=== PATIENT | female | born 1950 | race African-American/Black ===

== ENCOUNTER 2019-03-07 15:18 | Emergency (ER) | payer MEDICARE ==
--- NOTE | 2019-03-07 15:41 | Event Note ---
ED Screening Note Date of service: 03/07/19 Time: 15:34 ED Screening Note: This is a 68 y.o. F. that presents with hematemesis and weakness on awaking today. Patient sent to ER from Dr. Ankit Leslie office for elevated blood pressure and dizziness. Denies chest pain and shortness of breath. This initial assessment/diagnostic orders/clinical plan/treatment(s) is/are subject to change based on patients health status, clinical progression and re- assessment by fellow clinical providers in the ED. Further treatment and workup at subsequent clinical providers discretion. Patient/guardian urged not to elope from the ED as their condition may be serious if not clinically assessed and managed. Initial orders include: Labs Main ED for further evaluation POC glucose 111
[2019-03-07 16:39] LABS: Basophils % (Auto) 0.5 % (0.0-1.8); Eosinophils % (Auto) 0.1 % (0.0-4.3); Hematocrit 38.9 % (30.3-42.9); Hemoglobin 13.4 gm/dl (10.1-14.3); Lymphocytes # (Auto) 1.2 K/mm3 (1.2-5.4); Lymphocytes % (Auto) 18.6 % (13.4-35.0); Mean Corpuscular HGB Conc 35 % (30-34); Mean Corpuscular Volume 89 fl (79-97); Monocytes # (Auto) 0.2 K/mm3 (0.0-0.8); Monocytes % (Auto) 3.5 % (0.0-7.3); Platelet Count 208 K/mm3 (140-440); Red Blood Count 4.35 M/mm3 (3.65-5.03)
[2019-03-07 17:02] LABS: Alanine Aminotransferase 14 units/L (7-56); Albumin 4.2 g/dL (3.9-5); BUN/Creatinine Ratio 22; Blood Urea Nitrogen 11 mg/dL (7-17); Calcium 9.4 mg/dL (8.4-10.2); Hemolysis Index 6
[2019-03-07 17:31] LABS: Bacteria,Urine 1+ /HPF (Negative); Bilirubin,Urine NEG (Negative); Blood,Urine NEG (Negative); Color,Urine Colorless (Yellow); Protein,Urine <15 mg/dL mg/dL (Negative); Urobilinogen,Urine < 2.0 mg/dL (<2.0)
[2019-03-07 17:39] LABS: WBC,Urine < 1.0 /HPF (0.0-6.0)
--- NOTE | 2019-03-07 18:03 | Cat Scan Report ---
CT HEAD WITHOUT CONTRAST INDICATION / CLINICAL INFORMATION: dizziness. TECHNIQUE: All CT scans at this location are performed using CT dose reduction for ALARA by means of automated e xposure control. COMPARISON: None available. FINDINGS: HEMORRHAGE: No evidence of intracranial hemorrhage or extra-axial fluid collection. EXTRA-AXIAL SPACES: Cortical sulci, sylvian fissures and basilar cisterns have an unremarkable appear ance. VENTRICULAR SYSTEM: The ventricular system is of normal size and configuration. CEREBRAL PARENCHYMA: No areas of abnormal brain parenchymal attenuation are identified. There is no i ndication of recent infarction. MIDLINE SHIFT OR HERNIATION: There is no mass effect. CEREBELLUM / BRAINSTEM: Brainstem and cerebellum have an unremarkable appearance. INTRACRANIAL VESSELS:No abnormalities are identified on this noncontrast head CT. SELLA TURCICA: No abnormality. 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 This does not appear to compress the adjacent tectal plate. ORBITS: visualized portions of the orbits have an unremarkable appearance. SOFT TISSUES of HEAD: No significant abnormality. CALVARIUM: Evaluation of bone windows reveals no abnormalities. PARANASAL SINUSES / MASTOID AIR CELLS: Paranasal sinuses are free from inflammatory mucosal disease. Mastoid air cells are normally pneumatized. IMPRESSION: 1. 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 2. Negative head CT without contrast. Signer Name: Otto Wan MD Signed: 03/07/2019 5:58 PM Workstation Name: [id number]
[2019-03-07 18:15] VITALS: BP 136/71
--- NOTE | 2019-03-07 19:24 | Emergency Department Report ---
ED Dizziness HPI - General Chief Complaint: Dizziness Stated Complaint: N/V/D BP CHECK Time Seen by Provider: 03/07/19 15:34 Source: patient Mode of arrival: Ambulatory Limitations: No Limitations - History of Present Illness Initial Comments: 68-year-old female presents to ED with dizziness and high blood pressure. Patient states when she woke this morning she felt dizzy and lightheaded, so she and her performed coin rubbing to her chest and back. Patient states she followed up at her doctor's office and was found to be hypertensive so she was sent to the ED. Contrary to screening note by midlevel, pt DENIES hematemesis. Only reports a single episode of NONBILIOUS, NONBLOODY emesis. Pt states her dizziness is currently resolved. MD Complaint: dizziness, lightheadedness -: This morning Timing: awoke with symptoms Description: lightheadedness Severity: mild Worsens With: nothing Associated Symptoms: denies: ataxia, chest pain, cough, fever/chills, shortness of breath, syncope - Related Data Allergies Allergy/AdvReac Type Severity Reaction Status Date / Time No Known Allergies Allergy Verified 03/07/19 18:06 ED Review of Systems ROS: Stated complaint: N/V/D BP CHECK Other details as noted in HPI Comment: All other systems reviewed and negative Constitutional: denies: chills, fever Respiratory: denies: cough, shortness of breath Cardiovascular: denies: chest pain, palpitations Gastrointestinal: nausea, vomiting. denies: abdominal pain, diarrhea, constipation Neurological: denies: headache, weakness, numbness ED Past Medical Hx - Past Medical History Previous Medical History?: No - Surgical History Past Surgical History?: Yes Additional Surgical History: bladder surgery - Social History Smoking Status: Never Smoker Substance Use Type: None ED Physical Exam - General Limitations: No Limitations General appearance: alert, in no apparent distress - Head Head exam: Present: atraumatic, normocephalic - Eye Eye exam: Present: normal appearance, PERRL, EOMI - ENT ENT exam: Present: mucous membranes moist - Neck Neck exam: Present: normal inspection - Respiratory Respiratory exam: Present: normal lung sounds bilaterally, other (linear bruising across anterior and posterior chest consistent w/ coin rubbing). Absent: respiratory distress - Cardiovascular Cardiovascular Exam: Present: regular rate, normal rhythm - GI/Abdominal GI/Abdominal exam: Present: soft. Absent: distended, tenderness - Extremities Exam Extremities exam: Present: normal inspection - Neurological Exam Neurological exam: Present: alert, oriented X3, CN II-XII intact, normal gait. Absent: motor sensory deficit - Psychiatric Psychiatric exam: Present: normal affect, normal mood - Skin Skin exam: Present: warm, dry, intact, normal color. Absent: rash ED Course Vital Signs 03/07/19 03/07/19 03/07/19 15:34 16:39 16:45 Temperature 97.5 F L Pulse Rate 66 64 64 Respiratory 20 16 13 Rate Blood Pressure 147/94 134/71 Blood Pressure [Left] O2 Sat by Pulse 98 100 Oximetry 03/07/19 03/07/19 03/07/19 17:04 18:08 18:14 Temperature Pulse Rate 66 59 L Respiratory 17 16 11 L Rate Blood Pressure 154/87 Blood Pressure 136/71 [Left] O2 Sat by Pulse 100 Oximetry ED Medical Decision Making - Lab Data Result diagrams: 03/07/19 15:50 03/07/19 15:50 - EKG Data -: EKG Interpreted by [facility] EKG shows normal: sinus rhythm, axis, intervals, QRS complexes, ST-T waves Rate: normal - EKG Data Interpretation: no acute changes - Radiology Data Radiology results: report reviewed, image reviewed - Medical Decision Making 68-year-old female with complaint of hypertension and dizziness. Symptoms currently resolved. BP currently normal. CT head normal. Labs are unremarkable. EKG is normal. Patient is not orthostatic. Patient has no neuro deficits on exam. Patient is ambulatory with normal gait, and is feeling much better than what she described from this morning. Will discharge at this time, patient advised to follow-up with her PCP. Return precautions given. - Differential Diagnosis hypertensive dizziness, arrythmia, dehydration, CVA Critical care attestation.: If time is entered above; I have spent that time in minutes in the direct care of this critically ill patient, excluding procedure time. ED Disposition Clinical Impression: Dizziness Disposition: DC-01 TO HOME OR SELFCARE Is pt being admited?: No Condition: Stable Instructions: Dizziness (ED) Referrals: SHERLYN GARCIA MD [Primary Care Provider] - 3-5 Days Time of Disposition: 19:24
== END 2019-03-07 19:31 | disposition home or self-care (01) ==
LOC: EDSEX → ED 15:18
DX: S20.219A Contusion of unspecified front wall of thorax, initial encounter (principal); R42 Dizziness and giddiness; Z98.890 Other specified postprocedural states; X58.XXXA Exposure to other specified factors, initial encounter; Y93.89 Activity, other specified; Y92.89 Other specified places as the place of occurrence of the external cause; Y99.8 Other external cause status
CPT/HCPCS: 36415; 70450; 80053; 81001; 82962; 85025; 93005; 93010; 99284